=== PATIENT | female | born 1990 | race Caucasian/White ===

== ENCOUNTER → 2016-07-24 | Outpatient (CLI) | payer OTHER | LOC: M WUC 09:45 | PROVIDERS: ATTEND Nurse Practitioner Family | DX: E55.9 Vitamin D deficiency, unspecified (principal) ==

== ENCOUNTER → 2017-04-11 | Outpatient (CLI) | payer OTHER ==
[2017-04-11 18:01] LABS: BASO # 0.1 10^3/uL (0.0-0.2); BASO % 0.5 % (0.0-1.0); EOS # 0.1 10^3/uL (0.0-0.50); EOS % 1.1 % (0.0-3.0); IMMATURE GRANULOCYTE % 0.2 % (0-0); LYMPH # 3.6 10^3/uL (1.5-6.5); LYMPH % 36.9 % (24.0-44.0); MEAN CORPUSCULAR HEMOGLOBIN 29.4 pg (27.0-33.0); MEAN CORPUSCULAR HGB CONC 31.6 g/dl (32.0-36.5); MONO # 0.6 10^3/uL (0.0-0.8); MONO % 6.3 % (0.0-5.0); NEUTROPHILS # 5.3 10^3/uL (1.8-7.7); PLATELET COUNT, AUTOMATED 403 10^3/uL (150-450); RED CELL DISTRIBUTION WIDTH 12.9 % (11.5-14.5); WHITE BLOOD COUNT 9.7 10^3/uL (4.0-10.0)
[2017-04-11 18:10] LABS: ALBUMIN 3.9 GM/DL (3.2-5.2); ALBUMIN/GLOBULIN RATIO 1.08 (1.00-1.93); ALKALINE PHOSPHATASE 109 U/L (45-117); ALT/SGPT 57 U/L (12-78); ANION GAP 9 MEQ/L (8-16); AST/SGOT 22 U/L (7-37); BILIRUBIN,TOTAL 0.4 MG/DL (0.2-1.0); BLOOD UREA NITROGEN 8 MG/DL (7-18); CALCIUM LEVEL 8.9 MG/DL (8.5-10.1); CARBON DIOXIDE LEVEL 27 MEQ/L (21-32); CHLORIDE LEVEL 107 MEQ/L (98-107); CHOLESTEROL LEVEL 198 MG/DL (<200); CREATININE FOR GFR 0.56 MG/DL (0.55-1.02); GLOMERULAR FILTRATION RATE > 60.0 (>60); GLUCOSE, FASTING 77 MG/DL (70-105); POTASSIUM SERUM 4.5 MEQ/L (3.5-5.1); SODIUM LEVEL 143 MEQ/L (136-145); TOTAL PROTEIN 7.5 GM/DL (6.4-8.2); TRIGLYCERIDES LEVEL 100 MG/DL (<150)
== END ==
LOC: M WUC 09:12
PROVIDERS: ATTEND Nurse Practitioner Family
DX: K21.9 Gastro-esophageal reflux disease without esophagitis (principal); E55.9 Vitamin D deficiency, unspecified; E78.4 Other hyperlipidemia

== ENCOUNTER 2018-02-08 15:34 | Emergency (ER) | payer OTHER ==
[2018-02-08] MEDS: IPRATROPIUM 0.5MG/ALBUTEROL 2.5MG INH SOL UD 3ML (DUONEB)(J7620) NEB (16:46)
[2018-02-08] MEDS: NS 1,000 ML IV (16:55)
[2018-02-08] MEDS: diphenhydrAMINE INJ 50MG/ML VIAL (J1200) IV (16:56)
[2018-02-08] MEDS: methylPREDNISolone INJ 125 MG/2 ML VIAL (J2930) IV (16:56)
[2018-02-08] MEDS: FAMOTIDINE INJ 20MG/2ML VIAL (S0028) IVP (16:56)
== END 2018-02-08 18:02 | disposition home or self-care (01) ==
LOC: M ED 15:34
DX: T63.441A Toxic effect of venom of bees, accidental (unintentional), initial encounter (principal); Y92.9 Unspecified place or not applicable; Y93.9 Activity, unspecified; K21.9 Gastro-esophageal reflux disease without esophagitis; Z79.899 Other long term (current) drug therapy; Z91.030 Bee allergy status; Z91.018 Allergy to other foods; Z88.1 Allergy status to other antibiotic agents
CPT/HCPCS: J1200

== ENCOUNTER → 2018-04-13 | Outpatient (CLI) | payer OTHER ==
[2018-04-13 12:21] LABS: BASO # 0.1 10^3/uL (0.0-0.2); BASO % 0.7 % (0.0-1.0); EOS # 0.1 10^3/uL (0.0-0.50); EOS % 1.2 % (0.0-3.0); HEMATOCRIT 46.7 % (36.0-47.0); HEMOGLOBIN 15.2 g/dl (12.0-15.5); IMMATURE GRANULOCYTE % 0.3 % (0-3.0); LYMPH # 3.6 10^3/uL (1.5-6.5); LYMPH % 32.6 % (24.0-44.0); MEAN CORPUSCULAR HEMOGLOBIN 30.6 pg (27.0-33.0); MEAN CORPUSCULAR HGB CONC 32.5 g/dl (32.0-36.5); MONO # 0.5 10^3/uL (0.0-0.8); MONO % 4.1 % (0.0-5.0); NEUTROPHILS # 6.7 10^3/uL (1.8-7.7); NEUTROPHILS % 61.1 % (36.0-66.0); PLATELET COUNT, AUTOMATED 374 10^3/uL (150-450); RED BLOOD COUNT 4.97 10^6/uL (4.00-5.40); RED CELL DISTRIBUTION WIDTH 12.7 % (11.5-14.5); WHITE BLOOD COUNT 10.9 10^3/uL (4.0-10.0)
[2018-04-13 13:32] LABS: ALBUMIN 3.8 GM/DL (3.2-5.2); ALBUMIN/GLOBULIN RATIO 1.12 (1.00-1.93); ALKALINE PHOSPHATASE 105 U/L (45-117); ALT/SGPT 63 U/L (12-78); ANION GAP 9 MEQ/L (8-16); AST/SGOT 23 U/L (7-37); BILIRUBIN,TOTAL 0.4 MG/DL (0.2-1.0); BLOOD UREA NITROGEN 10 MG/DL (7-18); CALCIUM LEVEL 8.7 MG/DL (8.5-10.1); CARBON DIOXIDE LEVEL 24 MEQ/L (21-32); CHLORIDE LEVEL 108 MEQ/L (98-107); CHOLESTEROL LEVEL 190 MG/DL (<200); CHOLESTEROL RISK RATIO 4.042 (<5); GLOMERULAR FILTRATION RATE > 60.0 (>60); GLUCOSE, FASTING 72 MG/DL (70-100); HDL CHOLESTEROL 47 MG/DL (>40); LDL CHOLESTEROL 125 MG/DL (<100); NON-HDL-C 143 MG/DL; POTASSIUM SERUM 4.4 MEQ/L (3.5-5.1); SODIUM LEVEL 141 MEQ/L (136-145); TOTAL 25(OH) VITAMIN D 24.8 NG/ML (30.0-100.0); TOTAL PROTEIN 7.2 GM/DL (6.4-8.2); TRIGLYCERIDES LEVEL 89 MG/DL (<150)
== END ==
LOC: M WUC 09:05
DX: K21.9 Gastro-esophageal reflux disease without esophagitis (principal); E55.9 Vitamin D deficiency, unspecified; E78.49 Other hyperlipidemia
CPT/HCPCS: 80053

== ENCOUNTER → 2018-05-19 | Outpatient (REF) | payer OTHER ==
[~2018-05-19] MED LIST: EPIP0.3I2 IM; FAMO20TA PO; PANT40TA3 PO; PRED20TA PO; TIZA2CAP PO
== END ==
LOC: M SFHCWAGY 14:26
PROVIDERS: ATTEND Nurse Practitioner Women's Health
DX: Z12.4 Encounter for screening for malignant neoplasm of cervix (principal); Z01.419 Encounter for gynecological examination (general) (routine) without abnormal findings

== ENCOUNTER → 2018-06-01 | Outpatient (CLI) | payer OTHER ==
[2018-06-01 15:40] LABS: RUBELLA IgG QUALITATIVE IMMUNE (IMMUNE)
[2018-06-03 15:03] LABS: MUMPS VIRUS IgG ANTIBODY 73.1 AU/mL (Immune >10.9); RUBEOLA IgG ANTIBODY >300.0 AU/mL (Immune >29.9)
== END ==
LOC: M WUC 13:02
PROVIDERS: ATTEND Nurse Practitioner Family
DX: Z01.84 Encounter for antibody response examination (principal)

== ENCOUNTER → 2019-06-12 | Outpatient (REF) | payer OTHER ==
[2019-06-12 13:31] LABS: BASO # 0.1 10^3/uL (0.0-0.2); BASO % 0.7 % (0.0-1.0); EOS # 0.2 10^3/uL (0.0-0.5); HEMATOCRIT 42.8 % (36.0-47.0); HEMOGLOBIN 13.8 g/dl (12.0-15.5); LYMPH # 3.5 10^3/uL (1.5-5.0); LYMPH % 32.9 % (24.0-44.0); MEAN CORPUSCULAR HEMOGLOBIN 29.9 pg (27.0-33.0); MEAN CORPUSCULAR HGB CONC 32.2 g/dl (32.0-36.5); MEAN CORPUSCULAR VOLUME 92.6 fl (80.0-96.0); MONO # 0.6 10^3/uL (0.0-0.8); MONO % 5.4 % (0.0-5.0); NEUTROPHILS # 6.2 10^3/uL (1.5-8.5); NEUTROPHILS % 58.3 % (36.0-66.0); PLATELET COUNT, AUTOMATED 413 10^3/uL (150-450); RED BLOOD COUNT 4.62 10^6/uL (4.00-5.40); WHITE BLOOD COUNT 10.5 10^3/uL (4.0-10.0)
[2019-06-12 13:36] LABS: C REACTIVE PROTEIN QUANTITATIV 1.16 MG/DL (0.00-0.30); RHEUMATOID FACTOR QUANT < 10.0 IU/ML (<15.0)
[2019-06-12 14:20] LABS: ERYTHROCYTE SEDIMENTATION RATE 19 mm/hr (0-20)
== END ==
LOC: M LABDRAW1 10:57
PROVIDERS: ATTEND Physician Assistant
DX: M51.34 Other intervertebral disc degeneration, thoracic region (principal)

== ENCOUNTER → 2019-08-07 | Outpatient (REF) | payer OTHER ==
[2019-08-07 14:27] LABS: ESTRADIOL 38.3 PG/ML; FOLLICLE STIMULATING HORMONE 7.8 mIU/mL; LUTEINIZING HORMONE 8.5 mIU/mL
[2019-08-07 14:31] LABS: HEMOGLOBIN A1c 5.8 %
== END ==
LOC: M PLALAB 11:19
PROVIDERS: ATTEND Nurse Practitioner Women's Health
DX: N92.6 Irregular menstruation, unspecified (principal); Z32.02 Encounter for pregnancy test, result negative

== ENCOUNTER → 2019-08-14 | Outpatient (CLI) | payer OTHER ==
--- NOTE | 2019-08-15 05:37 | REP ---
Clinical: Irregular menstrual cycles. Technique: Transabdominal pelvic ultrasound followed by transvaginal examination for better evaluation of the endometrium and adnexa with color Doppler evaluation of the ovaries. Findings: Bladder is unremarkable and measures 9.3 x 6.9 x 5.6 cm. Normal anteverted uterus measures 8.3 x 3.7 x 4.5 cm. Endometrial complex measures 9 mm thickness. No discrete uterine or endometrial abnormalities appreciated. The bilateral ovaries are normal in appearance and vascularity demonstrating multiple normal follicles. Right ovary measures 2.5 x 2.1 x 2.5 cm (RI 0.48). Left ovary measures 2.3 x 1.8 x 1.3 cm (RI 0.49). Minimal amount of free fluid in the pelvis is nonspecific and likely physiologic. Impression: Essentially normal pelvic ultrasound.
== END ==
LOC: M WHC 10:09
PROVIDERS: ATTEND Nurse Practitioner Women's Health
DX: N92.6 Irregular menstruation, unspecified (principal)

== ENCOUNTER 2020-08-20 23:23 | Emergency (ER) | payer OTHER ==
[~2020-08-20] VITALS: Ht 144.8 cm; Wt 108.2 kg
[~2020-08-20 23:23] MED LIST changes: +PANT40TA29 PO; -PANT40TA3 PO
[2020-08-20] MEDS ORDERED: LORA-674 PO (23:41)
[2020-08-20] MEDS ORDERED: D31000TA2 PO (23:41)
[2020-08-21 04:10] VITALS: BP 148/77
== END 2020-08-21 04:58 | disposition home or self-care (01) ==
LOC: M ED 23:23
DX: R10.9 Unspecified abdominal pain (principal); T19.2XXA Foreign body in vulva and vagina, initial encounter; Y92.9 Unspecified place or not applicable; Y93.9 Activity, unspecified; K21.9 Gastro-esophageal reflux disease without esophagitis; J30.89 Other allergic rhinitis; Z79.899 Other long term (current) drug therapy; Z91.018 Allergy to other foods; Z91.030 Bee allergy status; Z88.2 Allergy status to sulfonamides; Z88.1 Allergy status to other antibiotic agents

== ENCOUNTER 2021-01-01 15:50 | Emergency (ER) | payer OTHER ==
[~2021-01-01] VITALS: Ht 144.8 cm; Wt 104.5 kg
[~2021-01-01 15:50] MED LIST changes: +D31000TA2 PO; +LORA-674 PO
[2021-01-01 16:17] VITALS: BP 126/90
== END 2021-01-01 20:18 | disposition left against medical advice (07) ==
LOC: M ED 15:50
DX: Z53.21 Procedure and treatment not carried out due to patient leaving prior to being seen by health care provider (principal)

== ENCOUNTER 2021-01-04 14:16 | Emergency (ER) | payer OTHER ==
[~2021-01-04] VITALS: Ht 144.8 cm; Wt 104.1 kg
[2021-01-04] MEDS ORDERED: BENA25CA4 PO ×2 (14:37→16:35)
[2021-01-04] MEDS ORDERED: multivitamin (14:37)
[2021-01-04] MEDS ORDERED: methylPREDNISolone 125MG 2ML VIAL IV ONE (14:55)
[2021-01-04] MEDS ORDERED: NS 1,000 ML IV ONE (14:55)
[2021-01-04] MEDS ORDERED: FAMOTIDINE INJ 20MG/2ML VIAL (S0028 PER 1) IVP ONE (14:55)
[2021-01-04] MEDS ORDERED: diphenhydrAMINE 50MG/ML VIAL (J1200) IV ONE (14:55)
[2021-01-04] MEDS ORDERED: PRED20TA PO (16:35)
[2021-01-04] MEDS ORDERED: PEPC1TAB5 PO (16:36)
[2021-01-04 17:33] VITALS: BP 141/76
== END 2021-01-04 17:39 | disposition home or self-care (01) ==
LOC: M ED 14:16
DX: T63.441A Toxic effect of venom of bees, accidental (unintentional), initial encounter (principal); Z91.030 Bee allergy status; J30.89 Other allergic rhinitis; Z79.899 Other long term (current) drug therapy; Z91.018 Allergy to other foods; Z88.2 Allergy status to sulfonamides; Z88.1 Allergy status to other antibiotic agents
CPT/HCPCS: 93041; 94760; 96361; 96374; 96375; 99284; J1200; J2930

== ENCOUNTER 2021-10-05 11:06 | Emergency (ER) | payer OTHER ==
[~2021-10-05] VITALS: Ht 144.8 cm; Wt 109.1 kg
[~2021-10-05 11:06] MED LIST changes: +BENA25CA4 PO; -D31000TA2 PO; +PEPC1TAB5 PO; +VITA100093 PO; +multivitamin
[2021-10-05] MEDS ORDERED: NS 1,000 ML IV ONE (11:30)
[2021-10-05] MEDS ORDERED: KETOROLAC 30 MG/ML 1ML VIAL IV ONE (11:30)
[2021-10-05] MEDS ORDERED: ISOVUE-370 76% 100ML VIAL As Ordered ONE (12:07)
[2021-10-05 12:12] LABS: BASO # 0.1 10^3/uL (0.0-0.2); BASO % 0.7 % (0.0-1.0); EOS # 0.2 10^3/uL (0.0-0.5); EOS % 1.6 % (0.0-3.0); HEMATOCRIT 45.4 % (36.0-47.0); HEMOGLOBIN 14.8 g/dl (12.0-15.5); LYMPH # 3.1 10^3/uL (1.5-5.0); LYMPH % 29.1 % (24.0-44.0); MEAN CORPUSCULAR HEMOGLOBIN 30.2 pg (27.0-33.0); MEAN CORPUSCULAR HGB CONC 32.6 g/dl (32.0-36.5); MEAN CORPUSCULAR VOLUME 92.7 fl (80.0-96.0); MONO # 0.4 10^3/uL (0.0-0.8); MONO % 3.7 % (2.0-8.0); NEUTROPHILS # 6.8 10^3/uL (1.5-8.5); NEUTROPHILS % 64.5 % (36.0-66.0); PLATELET COUNT, AUTOMATED 384 10^3/uL (150-450); WHITE BLOOD COUNT 10.5 10^3/uL (4.0-10.0)
[2021-10-05 12:23] LABS: BLOOD UREA NITROGEN 7 MG/DL (7-18); C REACTIVE PROTEIN QUANTITATIV 1.85 MG/DL (0.00-0.30); CARBON DIOXIDE LEVEL 26 MEQ/L (21-32); CHLORIDE LEVEL 108 MEQ/L (98-107); CREATININE FOR GFR 0.58 MG/DL (0.55-1.30); GLOMERULAR FILTRATION RATE > 60.0 (>60); GLUCOSE, FASTING 101 MG/DL (70-100); SODIUM LEVEL 140 MEQ/L (136-145)
[2021-10-05 12:44] LABS: ERYTHROCYTE SEDIMENTATION RATE 22 mm/hr (0-20)
[2021-10-05 13:33] VITALS: BP 152/75
== END 2021-10-05 14:32 | disposition home or self-care (01) ==
LOC: M ED 11:06
DX: R59.0 Localized enlarged lymph nodes (principal); F12.10 Cannabis abuse, uncomplicated; Z91.018 Allergy to other foods; Z91.030 Bee allergy status; Z91.02 Food additives allergy status; Z88.1 Allergy status to other antibiotic agents; Z88.2 Allergy status to sulfonamides
CPT/HCPCS: 36415; 70491; 80047; 80048; 83605; 84702; 85025; 85652; 86140; 87880; 99284; J1885; Q9967

== ENCOUNTER → 2022-06-15 | Outpatient (REF) | payer OTHER ==
[2022-06-15 12:17] LABS: ALBUMIN 3.4 G/DL (3.2-5.2); ALKALINE PHOSPHATASE 112 U/L (46-116); ALT/SGPT 91 U/L (7.0-40); AST/SGOT 28 U/L (<34); BILIRUBIN,TOTAL 0.4 MG/DL (0.3-1.2); BLOOD UREA NITROGEN 14 MG/DL (9-23); CALCIUM LEVEL 9.3 MG/DL (8.5-10.1); CARBON DIOXIDE LEVEL 28 MMOL/L (20-31); CHLORIDE LEVEL 107 MMOL/L (98-107); CHOLESTEROL LEVEL 214 MG/DL (<200); CHOLESTEROL RISK RATIO 3.77 (<5); CREATININE FOR GFR 0.54 MG/DL (0.55-1.30); GLOMERULAR FILTRATION RATE > 60.0 (>60); GLUCOSE, FASTING 112 MG/DL (60-100); HDL CHOLESTEROL 56.7 MG/DL (>40); LDL CHOLESTEROL 135.3 MG/DL (<100); NON-HDL-C 157 MG/DL; POTASSIUM SERUM 4.4 MMOL/L (3.5-5.1); SODIUM LEVEL 141 MMOL/L (136-145); TRIGLYCERIDES LEVEL 110 MG/DL (<150)
== END ==
LOC: M LAB REF 11:18
PROVIDERS: ATTEND Nurse Practitioner Family
DX: R79.89 Other specified abnormal findings of blood chemistry (principal); R74.8 Abnormal levels of other serum enzymes

== ENCOUNTER → 2022-09-04 | Outpatient (REF) | payer OTHER ==
[2022-09-04 13:30] LABS: ALBUMIN 3.4 G/DL (3.2-5.2); ALKALINE PHOSPHATASE 99 U/L (46-116); ALT/SGPT 146 U/L (7.0-40); AST/SGOT 72 U/L (<34); BILIRUBIN,TOTAL 0.9 MG/DL (0.3-1.2); BLOOD UREA NITROGEN 11 MG/DL (9-23); CALCIUM LEVEL 8.6 MG/DL (8.5-10.1); CARBON DIOXIDE LEVEL 29 MMOL/L (20-31); CHLORIDE LEVEL 103 MMOL/L (98-107); CHOLESTEROL LEVEL 202 MG/DL (<200); CREATININE FOR GFR 0.53 MG/DL (0.55-1.30); GLOMERULAR FILTRATION RATE > 60.0 (>60); GLUCOSE, FASTING 113 MG/DL (60-100); HDL CHOLESTEROL 50.5 MG/DL (>40); LDL CHOLESTEROL 131.3 MG/DL (<100); NON-HDL-C 151.5 MG/DL; POTASSIUM SERUM 4.1 MMOL/L (3.5-5.1); SODIUM LEVEL 139 MMOL/L (136-145); TOTAL PROTEIN 6.8 G/DL (5.7-8.2); TRIGLYCERIDES LEVEL 101 MG/DL (<150)
== END ==
LOC: M LAB REF 12:12
PROVIDERS: ATTEND Nurse Practitioner Family
DX: R79.89 Other specified abnormal findings of blood chemistry (principal); R74.8 Abnormal levels of other serum enzymes

== ENCOUNTER → 2022-10-02 | Outpatient (CLI) | payer OTHER | LOC: M WHC 06:33 | PROVIDERS: ATTEND Nurse Practitioner Family | DX: R74.8 Abnormal levels of other serum enzymes (principal); K76.0 Fatty (change of) liver, not elsewhere classified ==

== ENCOUNTER → 2023-01-18 | Outpatient (REF) | payer OTHER ==
[~2023-01-18] MED LIST changes: +LORA-1041 PO; -LORA-674 PO
[2023-01-18 14:07] LABS: ALBUMIN 3.4 G/DL (3.2-5.2); ALKALINE PHOSPHATASE 94 U/L (46-116); ALT/SGPT 111 U/L (7.0-40); AST/SGOT 42 U/L (<34); BILIRUBIN,TOTAL 0.6 MG/DL (0.3-1.2); BLOOD UREA NITROGEN 12 MG/DL (9-23); CALCIUM LEVEL 8.8 MG/DL (8.5-10.1); CARBON DIOXIDE LEVEL 28 MMOL/L (20-31); CHLORIDE LEVEL 104 MMOL/L (98-107); CHOLESTEROL LEVEL 212 MG/DL (<200); CHOLESTEROL RISK RATIO 3.58 (<5); CREATININE FOR GFR 0.51 MG/DL (0.55-1.30); GLOMERULAR FILTRATION RATE > 60.0 (>60); GLUCOSE, FASTING 108 MG/DL (60-100); HDL CHOLESTEROL 59.1 MG/DL (>40); LDL CHOLESTEROL 136.3 MG/DL (<100); NON-HDL-C 152.9 MG/DL; POTASSIUM SERUM 4.6 MMOL/L (3.5-5.1); SODIUM LEVEL 138 MMOL/L (136-145); TRIGLYCERIDES LEVEL 83 MG/DL (<150)
[2023-01-18 14:40] LABS: HEPATITIS B CORE ANTIBODY IGM NEGATIVE (NEGATIVE)
[2023-01-18 14:41] LABS: HEPATITIS C VIRUS ABY INDEX 0.15 INDEX (<0.8)
== END ==
LOC: M LAB REF 12:04
PROVIDERS: ATTEND Nurse Practitioner Family
DX: R74.8 Abnormal levels of other serum enzymes (principal); R79.89 Other specified abnormal findings of blood chemistry

== ENCOUNTER → 2023-02-02 | Outpatient (REF) | payer OTHER | LOC: M PLALAB 15:33 | PROVIDERS: ATTEND Nurse Practitioner Family | DX: Z12.4 Encounter for screening for malignant neoplasm of cervix (principal) ==

== ENCOUNTER 2023-04-16 14:31 | Emergency (ER) | payer OTHER ==
[~2023-04-16] VITALS: Ht 144.8 cm; Wt 109.1 kg
[2023-04-16] MEDS ORDERED: AMOX875T PO (14:43)
[2023-04-16] MEDS ORDERED: NS 1,000 ML IV ONE (17:05)
[2023-04-16 17:18] LABS: RSV AMPLIFICATION NEGATIVE (NEGATIVE)
[2023-04-16 17:56] LABS: HEMATOCRIT 44.2 % (36.0-47.0); MEAN CORPUSCULAR HEMOGLOBIN 29.8 pg (27.0-33.0); MEAN CORPUSCULAR HGB CONC 31.7 g/dl (32.0-36.5); PLATELET COUNT, AUTOMATED 370 10^3/uL (150-450)
[2023-04-16 18:17] LABS: LIPASE 29 U/L (12-53)
[2023-04-16 18:19] LABS: ALBUMIN 3.7 G/DL (3.2-5.2); ALKALINE PHOSPHATASE 98 U/L (46-116); ALT/SGPT 63 U/L (7.0-40); AST/SGOT 34 U/L (<34); BILIRUBIN,DIRECT < 0.1 MG/DL (<0.4); BILIRUBIN,TOTAL 0.4 MG/DL (0.3-1.2); BLOOD UREA NITROGEN 7 MG/DL (9-23); CALCIUM LEVEL 9.2 MG/DL (8.5-10.1); CARBON DIOXIDE LEVEL 28 MMOL/L (20-31); CHLORIDE LEVEL 103 MMOL/L (98-107); CREATININE FOR GFR 0.41 MG/DL (0.55-1.30); GLOMERULAR FILTRATION RATE > 60.0 (>60); GLUCOSE, FASTING 78 MG/DL (60-100); POTASSIUM SERUM 4.5 MMOL/L (3.5-5.1); SODIUM LEVEL 139 MMOL/L (136-145); TOTAL PROTEIN 7.3 G/DL (5.7-8.2)
[2023-04-16 18:37] LABS: EOSINOPHILS 3 % (0-3); LYMPHOCYTES 46 % (16-44); MONOCYTES 2 % (0-5); NEUTROPHILS 49 % (28-66); PLATELET ESTIMATE NORMAL (NORMAL)
[2023-04-16 19:54] VITALS: BP 136/66; TEMP 98.3; O2SAT 100
== END 2023-04-16 19:52 | disposition home or self-care (01) ==
LOC: M ED 14:31
DX: J02.9 Acute pharyngitis, unspecified (principal); R42 Dizziness and giddiness; R05.9 Cough, unspecified; Z87.891 Personal history of nicotine dependence; Z79.2 Long term (current) use of antibiotics; Z79.899 Other long term (current) drug therapy

== ENCOUNTER → 2023-06-15 | Outpatient (CLI) | payer OTHER ==
[~2023-06-15] MED LIST changes: +AMOX875T PO
== END ==
LOC: M PLALAB 15:43
PROVIDERS: ATTEND Allergy & Immunology Allergy
DX: T78.1XXA Other adverse food reactions, not elsewhere classified, initial encounter (principal)

== ENCOUNTER → 2023-07-30 | Outpatient (CLI) | payer OTHER ==
[2023-07-30 16:44] LABS: BASO % 0.6 % (0.0-1.0); EOS % 2.3 % (0.0-3.0); HEMOGLOBIN 13.6 g/dl (12.0-15.5); LYMPH % 38.1 % (24.0-44.0); MEAN CORPUSCULAR HEMOGLOBIN 30.2 pg (27.0-33.0); MEAN CORPUSCULAR HGB CONC 32.4 g/dl (32.0-36.5); MEAN CORPUSCULAR VOLUME 93.3 fl (80.0-96.0); MONO % 4.4 % (2.0-8.0); NEUTROPHILS % 54.1 % (36.0-66.0); PLATELET COUNT, AUTOMATED 369 10^3/uL (150-450); WHITE BLOOD COUNT 8.9 10^3/uL (4.0-10.0)
[2023-07-30 16:45] LABS: BASO # 0.1 10^3/uL (0.0-0.2); EOS # 0.2 10^3/uL (0.0-0.5); LYMPH # 3.4 10^3/uL (1.5-5.0); MONO # 0.4 10^3/uL (0.0-0.8); NEUTROPHILS # 4.8 10^3/uL (1.5-8.5)
[2023-07-30 16:57] LABS: HEMOGLOBIN A1c 5.2 % (4.0-6.0)
[2023-07-30 16:58] LABS: ALBUMIN 3.4 G/DL (3.2-5.2); ALKALINE PHOSPHATASE 90 U/L (46-116); ALT/SGPT 68 U/L (7.0-40); AST/SGOT 27 U/L (<34); BILIRUBIN,TOTAL 0.6 MG/DL (0.3-1.2); BLOOD UREA NITROGEN 9 MG/DL (9-23); CALCIUM LEVEL 8.9 MG/DL (8.5-10.1); CARBON DIOXIDE LEVEL 27 MMOL/L (20-31); CHLORIDE LEVEL 110 MMOL/L (98-107); CHOLESTEROL LEVEL 185 MG/DL (<200); CHOLESTEROL RISK RATIO 4.31 (<5); CREATININE FOR GFR 0.49 MG/DL (0.55-1.30); GLOMERULAR FILTRATION RATE > 60.0 (>60); GLUCOSE, FASTING 113 MG/DL (60-100); HDL CHOLESTEROL 42.9 MG/DL (>40); LDL CHOLESTEROL 119.1 MG/DL (<100); NON-HDL-C 142.1 MG/DL; POTASSIUM SERUM 3.9 MMOL/L (3.5-5.1); SODIUM LEVEL 141 MMOL/L (136-145); TOTAL PROTEIN 6.8 G/DL (5.7-8.2); TRIGLYCERIDES LEVEL 115 MG/DL (<150)
== END ==
LOC: M WUC 11:27
PROVIDERS: ATTEND Registered Nurse
DX: R94.5 Abnormal results of liver function studies (principal); E66.9 Obesity, unspecified; E78.2 Mixed hyperlipidemia

== ENCOUNTER 2023-08-06 12:43 | Emergency (ER) | payer OTHER ==
[~2023-08-06] VITALS: Ht 142.2 cm; Wt 108.6 kg
[2023-08-06] MEDS ORDERED: TOPI200T7 PO (13:02)
[2023-08-06] MEDS ORDERED: CETI-24 PO (13:02)
[2023-08-06] MEDS ORDERED: OSTE1TAB2 PO (13:02)
[2023-08-06] MEDS ORDERED: MELO7.5T35 PO (17:03)
[2023-08-06 18:00] LABS: APPEARANCE, URINE HAZY (CLEAR); BACTERIA, URINE AUTO NEGATIVE (NEGATIVE); BILIRUBIN, URINE AUTO NEGATIVE (NEGATIVE); BLOOD, URINE BLOOD NEGATIVE (NEGATIVE); COLOR, URINE YELLOW (YELLOW); GLUCOSE, URINE (UA) AUTO NEGATIVE (NEGATIVE); KETONE, URINE AUTO 2+ mg/dL (NEGATIVE); LEUKOCYTE ESTERASE, URINE AUTO NEGATIVE (NEGATIVE); MUCUS, URINE SMALL (NEGATIVE); NITRITE, URINE AUTO NEGATIVE (NEGATIVE); PROTEIN, URINE AUTO 1+ mg/dL (NEGATIVE); RBC, URINE AUTO 1 /HPF (0-3); SPECIFIC GRAVITY URINE AUTO 1.032 (1.002-1.035); SQUAMOUS EPITHELIAL CELL UR AU 7 /HPF (0-6); UROBILINOGEN, URINE AUTO 0.2 mg/dL (0.0-2.0); WBC, URINE AUTO 0 /HPF (0-3)
[2023-08-06 18:14] LABS: URINE PREG TEST NEGATIVE (NEGATIVE)
[2023-08-06 18:15] VITALS: BP 129/64; TEMP 97.7; O2SAT 99
[2023-08-06] MEDS: KETOROLAC 30 MG/ML 1ML VIAL IM ONE (18:25)
== END 2023-08-06 18:30 | disposition home or self-care (01) ==
LOC: M ED 12:43
DX: M25.551 Pain in right hip (principal); M25.561 Pain in right knee; W00.0XXA Fall on same level due to ice and snow, initial encounter; G43.909 Migraine, unspecified, not intractable, without status migrainosus; K21.9 Gastro-esophageal reflux disease without esophagitis; F12.10 Cannabis abuse, uncomplicated; Z88.1 Allergy status to other antibiotic agents; Z88.2 Allergy status to sulfonamides; Z91.030 Bee allergy status; Z91.018 Allergy to other foods; Z79.1 Long term (current) use of non-steroidal anti-inflammatories (NSAID); Z79.52 Long term (current) use of systemic steroids; Z79.899 Other long term (current) drug therapy; Y92.009 Unspecified place in unspecified non-institutional (private) residence as the place of occurrence of the external cause; Y93.89 Activity, other specified; Y99.9 Unspecified external cause status
CPT/HCPCS: 73502; 73564; 81001; 81025; 84703; 96372; 99284; J1885

== ENCOUNTER 2024-11-24 19:50 | Emergency (ER) | payer OTHER ==
[~2024-11-24] VITALS: Ht 144.8 cm; Wt 101.7 kg
[~2024-11-24 19:50] MED LIST changes: +CETI-24 PO; +MELO7.5T35 PO; +OSTE1TAB2 PO; +TOPI-14 PO
[2024-11-24] MEDS ORDERED: NORT25CA2 PO (20:10)
[2024-11-24] MEDS ORDERED: TOPI-257 PO (20:10)
[2024-11-24] MEDS ORDERED: FREM225A SQ (20:10)
[2024-11-25 02:31] LABS: PLATELET COUNT, AUTOMATED 370 10^3/uL (150-450)
[2024-11-25 02:51] LABS: ALT/SGPT 25 U/L (7.0-40); AST/SGOT 16 U/L (<34); CALCIUM LEVEL 8.6 MG/DL (8.5-10.1); CARBON DIOXIDE LEVEL 26 MMOL/L (20-31); CHLORIDE LEVEL 105 MMOL/L (98-107); CREATININE FOR GFR 0.56 MG/DL (0.55-1.30); GLOMERULAR FILTRATION RATE > 90.0 (>60); POTASSIUM SERUM 3.7 MMOL/L (3.5-5.1); SODIUM LEVEL 142 MMOL/L (136-145)
[2024-11-25 03:42] LABS: ATYPICAL LYMPH 2 % (0-5); EOSINOPHILS 1 % (0-3); LYMPHOCYTES 32 % (16-44); MONOCYTES 6 % (0-5); NEUTROPHILS 59 % (28-66); PLATELET ESTIMATE NORMAL (NORMAL)
[2024-11-25] MEDS: KETOROLAC 30 MG/ML 1 ML VIAL IV ONE ×2 (06:33→10:49)
[2024-11-25] MEDS: NS 500 ML IV ONE (06:33)
[2024-11-25 08:15] VITALS: TEMP 97.7; O2SAT 99
[2024-11-25 08:25] LABS: HCG, SERUM QUALITATIVE NEGATIVE (NEGATIVE)
[2024-11-25 09:09] LABS: KETONE, URINE AUTO RFX NEGATIVE (NEGATIVE); LEUKOCYTE ESTERASE UR AUTO RFX NEGATIVE (NEGATIVE); MUCUS, URINE RFX SMALL (NEGATIVE); NITRITE, URINE AUTO RFX NEGATIVE (NEGATIVE); RBC, URINE AUTO RFX 62 /HPF (0-3); SQUAM EPITHELIAL CELL UR AURFX 17 /HPF (0-6)
[2024-11-25 09:14] LABS: WBC, URINE AUTO RFX 24 /HPF (0-3)
[2024-11-25] MEDS ORDERED: HOME MED LIST COMPLETE! XX SCH (10:25)
[2024-11-25] MEDS ORDERED: CIPR500T39 PO (11:36)
[2024-11-25 11:51] VITALS: BP 130/70
== END 2024-11-25 12:01 | disposition home or self-care (01) ==
LOC: M ED 19:50
DX: N10 Acute pyelonephritis (principal); R53.81 Other malaise; K76.0 Fatty (change of) liver, not elsewhere classified; K42.9 Umbilical hernia without obstruction or gangrene; K21.9 Gastro-esophageal reflux disease without esophagitis; G43.909 Migraine, unspecified, not intractable, without status migrainosus; E28.2 Polycystic ovarian syndrome; Z79.2 Long term (current) use of antibiotics; Z79.899 Other long term (current) drug therapy; Z88.2 Allergy status to sulfonamides; Z88.1 Allergy status to other antibiotic agents; Z91.02 Food additives allergy status; Z91.018 Allergy to other foods
CPT/HCPCS: 74176; 76856; 80048; 80076; 81001; 83690; 84703; 85025; 87086; 93976; 96361; 96374; 96376; 99284; J1885

== ENCOUNTER → 2024-12-06 | Outpatient (REF) | payer OTHER ==
[~2024-12-06] MED LIST changes: +CIPR500T39 PO; +FREM225A SQ; +NORT25CA2 PO; +TOPI-257 PO
[2024-12-06 19:21] LABS: Trichomonas vaginalis (AMP) NOT DETECTED (NEGATIVE)
[2024-12-06 19:43] LABS: GC DNA AMPLIFICATION NEGATIVE (NEGATIVE)
== END ==
LOC: M LAB REF 17:14
PROVIDERS: ATTEND Physician Assistant
DX: R30.0 Dysuria (principal)

== ENCOUNTER → 2025-03-07 | Outpatient (CLI) | payer OTHER ==
[2025-03-07 18:16] LABS: BASO # 0.1 10^3/uL (0.0-0.2); BASO % 0.6 % (0.0-1.0); EOS # 0.2 10^3/uL (0.0-0.5); EOS % 1.7 % (0.0-3.0); LYMPH # 3.4 10^3/uL (1.5-5.0); LYMPH % 25.7 % (24.0-44.0); MONO # 0.5 10^3/uL (0.0-0.8); MONO % 4.0 % (2.0-8.0); NEUTROPHILS # 8.9 10^3/uL (1.5-8.5); NEUTROPHILS % 67.4 % (36.0-66.0); PLATELET COUNT, AUTOMATED 399 10^3/uL (150-450)
[2025-03-07 18:44] LABS: ALT/SGPT 42 U/L (7.0-40); AST/SGOT 21 U/L (<34); CALCIUM LEVEL 9.5 MG/DL (8.5-10.1); CARBON DIOXIDE LEVEL 26 MMOL/L (20-31); CHLORIDE LEVEL 106 MMOL/L (98-107); CREATININE FOR GFR 0.56 MG/DL (0.55-1.30); GLOMERULAR FILTRATION RATE > 90.0 (>60); POTASSIUM SERUM 4.0 MMOL/L (3.5-5.1); RHEUMATOID FACTOR QUANT < 3.5 IU/ML (<14); SODIUM LEVEL 144 MMOL/L (136-145)
[2025-03-07 18:45] LABS: VITAMIN B12 LEVEL 591 PG/ML (211-911)
== END ==
LOC: M PLALAB 16:00
PROVIDERS: ATTEND Psychiatry & Neurology Neurology
DX: R51.9 Headache, unspecified (principal)

== ENCOUNTER 2025-03-22 14:16 | Emergency (ER) | payer OTHER ==
[~2025-03-22] VITALS: Ht 144.8 cm; Wt 103.4 kg
[2025-03-22] MEDS ORDERED: TOPI-14 (14:26)
[2025-03-22] MEDS ORDERED: CYCL-707 (14:26)
[2025-03-22] MEDS ORDERED: SUMA100T2 (14:26)
[2025-03-22] MEDS ORDERED: NORT50CA (14:26)
[2025-03-22] MEDS: KETOROLAC 60 MG/2 ML VIAL IM ONE (17:07)
[2025-03-22] MEDS: METOCLOPRAMIDE 10 MG TAB PO ONE (17:07)
[2025-03-22 17:11] VITALS: BP 134/82; TEMP 96.9; O2SAT 100
== END 2025-03-22 17:24 | disposition home or self-care (01) ==
LOC: M ED 14:16
DX: S09.90XA Unspecified injury of head, initial encounter (principal); M54.2 Cervicalgia; W20.8XXA Other cause of strike by thrown, projected or falling object, initial encounter; R51.9 Headache, unspecified; K21.9 Gastro-esophageal reflux disease without esophagitis; E28.2 Polycystic ovarian syndrome; Z88.2 Allergy status to sulfonamides; Z88.1 Allergy status to other antibiotic agents; Z91.018 Allergy to other foods; Z91.030 Bee allergy status; Z91.09 Other allergy status, other than to drugs and biological substances; Y92.89 Other specified places as the place of occurrence of the external cause; Y93.89 Activity, other specified; Y99.0 Civilian activity done for income or pay; Z79.899 Other long term (current) drug therapy
CPT/HCPCS: 70450; 72125; 96372; 99283; J1885